=== PATIENT | female | born 1980 | race Hispanic/Latino ===

== ENCOUNTER → 2017-12-15 | Outpatient (CLI) | payer BC ==
[2017-12-16 08:13] LABS: BASOPHILS # (AUTO) 0.1 (0.0-0.1); EOSINOPHILS # (AUTO) 0.1 (0.0-0.4); EOSINOPHILS % 2.6 % (0.0-6.0); HEMATOCRIT 43.8 % (34.2-44.1); HEMOGLOBIN 14.9 g/dL (12.0-16.0); LYMPHOCYTES # (AUTO) 1.6 (1.0-3.2); LYMPHOCYTES % 31.3 % (18.0-39.1); MEAN CORPUSCULAR HEMOGLOBIN 30.8 pg (28-32); MEAN CORPUSCULAR VOLUME 90.7 fL (81-99); MONOCYTES # (AUTO) 0.3 (0.2-0.8); MONOCYTES % 6.5 % (4.4-11.3); NEUTROPHILS % 58.4 % (38.7-80.0); PLATELET COUNT 220 x10e3/uL (140-360); RED BLOOD COUNT 4.83 x10e6/uL (3.6-5.1); RED CELL DISTRIBUTION WIDTH 11.7 % (11.7-14.4)
[2017-12-16 08:18] LABS: CLARITY,URINE SL CLOUDY (CLEAR); COLOR,URINE YELLOW (YELLOW)
[2017-12-16 08:19] LABS: BILIRUBIN,URINE NEGATIVE (NEGATIVE); KETONES,URINE NEGATIVE (NEGATIVE); LEUKOCYTE ESTERASE ,URINE TRACE (NEGATIVE); NITRITE,URINE POSITIVE (NEGATIVE); PROTEIN,URINE DIPSTICK NEGATIVE (NEGATIVE); URINE UROBILINOGEN 0.2 mg/dL (0.2 - 1)
[2017-12-16 08:30] LABS: ALANINE AMINOTRANSFERASE 13 IU/L (0-55); ALBUMIN 4.3 g/dL (3.5-5.0); ALBUMIN/GLOBULIN RATIO 1.2 (0.8-2.0); ALKALINE PHOSPHATASE 46 IU/L (40-150); ANION GAP 12.7 mmol/L (8-16); BLOOD UREA NITROGEN 16 mg/dL (7-26); BUN/CREATININE RATIO 20 (6-25); CALCIUM 9.8 mg/dL (8.4-10.2); CARBON DIOXIDE 28 mmol/L (22-29); CHLORIDE 106 mmol/L (98-107); CHOL/HDL RATIO 3.9 (3.0-3.6); CHOLESTEROL 208 MD/DL (0-199); EST GLOMERULAR FILTRATION RATE > 60 ML/MIN (60-); GLUCOSE 94 mg/dL (74-118); HDL CHOLESTEROL 53 MG/DL (40-60); LDL CHOLESTEROL 134 MG/DL (60-130); POTASSIUM 4.7 mmol/L (3.5-5.1); SODIUM 142 mmol/L (136-145); TRIGLYCERIDES 104 MG/DL (0-149)
[2017-12-16 08:34] LABS: BACTERIA,URINE MODERATE /HPF; EPITHELIAL CELLS,URINE MODERATE /LPF
[2017-12-16 08:49] LABS: THYROID STIMULATING HORMONE 29.563 uIU/mL (0.350-4.940)
== END ==
LOC: MAMMO 14:51
PROVIDERS: ATTEND Family Medicine
DX: Z00.00 Encounter for general adult medical examination without abnormal findings (principal); Z12.31 Encounter for screening mammogram for malignant neoplasm of breast
CPT/HCPCS: 36415; 77067; 80053; 80061; 81001; 82306; 84443; 85025; 87086; 87186

== ENCOUNTER → 2018-04-18 | Outpatient (CLI) | payer BC | LOC: LAB 11:56 | PROVIDERS: ATTEND Family Medicine | DX: E05.90 Thyrotoxicosis, unspecified without thyrotoxic crisis or storm (principal) | CPT/HCPCS: 36415; 84443 ==

== ENCOUNTER → 2018-05-10 | Outpatient (CLI) | payer BC ==
--- NOTE | 2018-05-11 08:49 | Diagnostic Imaging Report ---
#[id number] - MGDXRT #UNILATERAL RIGHT DIGITAL DIAGNOSTIC MAMMOGRAM WITH SPOT COMPRESSION AND MAGNIFICATION: 05/10/2018 Comparison is made to exam dated: 12/16/2017 mammogram - [facility]. Current study contains 3 films. The tissue of the right breast is extremely dense, which lowers the sensitivity of mammography. There is an amorphous calcification in the right breast at 7 o'clock anterior depth. No other significant masses or calcifications are seen in the breast. IMPRESSION: PROBABLY BENIGN The amorphous calcification in the right breast is probably benign. A follow-up mammogram in 6 months is recommended to demonstrate stability. The patient has been or will be notified of the results. Mauricio ly/pradip:05/10/2018 16:50:18 Coin Machine Service Repairer: Brittny NOBLES(Flor)(Sandra), [facility] letter sent: Followup Recommended Mammogram BI-RADS: 3 Probably benign
== END ==
LOC: MAMMO 15:36
PROVIDERS: ATTEND Family Medicine
DX: N63.10 Unspecified lump in the right breast, unspecified quadrant (principal)

== ENCOUNTER → 2019-07-02 | Outpatient (CLI) | payer BC | LOC: MAMMO 14:37 | PROVIDERS: ATTEND Family Medicine | DX: Z12.31 Encounter for screening mammogram for malignant neoplasm of breast (principal) | CPT/HCPCS: 77067 ==

== ENCOUNTER → 2019-07-16 | Outpatient (CLI) | payer BC ==
--- NOTE | 2019-07-20 08:29 | Diagnostic Imaging Report ---
#[id number] - MGDXLT #UNILATERAL LEFT DIGITAL DIAGNOSTIC MAMMOGRAM WITH SPOT COMPRESSION: 07/16/2019 Comparison is made to exams dated: 07/02/2019 mammogram, 05/10/2018 mammogram and 12/16/2017 mammogram - [facility]. The tissue of the left breast is extremely dense, which lowers the sensitivity of mammography. There is an oval equal density mass with a circumscribed margin in the left breast at 1 o'clock in the retroareolar region. No other significant masses or calcifications are seen in the breast. IMPRESSION: INCOMPLETE: NEEDS ADDITIONAL IMAGING EVALUATION The oval equal density mass in the left breast is indeterminate. Ultrasound evaluation will be performed and reported during the same visit. MARVIN CHAVEZ M.D. kw/:07/19/2019 11:29:51 Warble Saw Operator: Brittny LYNCH)(Sandra), [facility] Mammogram BI-RADS: 0 Indeterminate
--- NOTE | 2019-07-20 08:29 | Diagnostic Imaging Report ---
#[id number] - USBRELIMLT ULTRASOUND OF THE LEFT BREAST : 07/16/2019 Comparison is made to exams dated: 07/16/2019 mammogram, 07/02/2019 mammogram and 05/10/2018 mammogram - [facility]. Color flow and real-time ultrasound were performed on the left breast. Toussaint scale images of the real-time examination were reviewed. There are benign 1 cm to 1.5 cm oval cysts with smooth internal purvis in the left breast superior lateral quadrant in the retroareolar region. These 1 cm to 1.5 cm oval cysts are anechoic with well-defined boundaries and posterior acoustic enhancement. IMPRESSION: BENIGN There is no sonographic evidence of malignancy. The 1 cm to 1.5 cm oval cysts in the left breast are consistent with simple cysts and are benign. A 1 year screening mammogram is recommended. MARVIN CHAVEZ M.D. kw/:07/19/2019 11:31:33 Business Intelligence Engineer: JOSELIN PEREZ [facility], [facility] letter sent: Compared to Prior B9 Ultrasound BI-RADS: 2 Benign
== END ==
LOC: MAMMO 10:54
PROVIDERS: ATTEND Family Medicine
DX: R92.2 Inconclusive mammogram (principal)